=== PATIENT | male | born 1945 | race Caucasian/White ===

== ENCOUNTER 2020-07-03 06:00 | Day surgery (SDC) | payer MEDICARE ==
[~2020-07-03] VITALS: Ht 172.7 cm; Wt 82.4 kg
[2020-07-03] VITALS (11 sets, daily range): BP systolic 82–108; BP diastolic 57–98
[2020-07-03] MEDS ORDERED: UMEC62.5 (06:51)
[2020-07-03] MEDS ORDERED: POTA99TA21 PO (06:51)
[2020-07-03] MEDS ORDERED: ALBU18HF2 INH (06:51)
[2020-07-03] MEDS ORDERED: SPIR100T5 PO (06:51)
[2020-07-03] MEDS ORDERED: MULT-1085 PO (06:51)
[2020-07-03] MEDS ORDERED: MAGN200T8 PO (06:51)
[2020-07-03] MEDS ORDERED: FURO40TA4 PO (06:51)
[2020-07-03] MEDS ORDERED: CALC-393 PO (06:51)
[2020-07-03] MEDS ORDERED: CHOL1TAB PO (06:51)
[2020-07-03] MEDS ORDERED: ASCO100089 PO (06:51)
[2020-07-03] MEDS ORDERED: SALM50DI2 IH (06:51)
[2020-07-03] MEDS: albumin 25% 100mL bottle x 1 IV PRN ×2 (09:00→09:45)
[2020-07-03 09:14] LABS: ALBUMIN,BODY FLUID 0.7 G/DL
[2020-07-03 09:35] LABS: EOSINOPHILS,BODY FLUID 2 %; LYMPHOCYTES,BODY FLUID 75 %; MONOCYTES,BODY FLUID 17 %; NEUTROPHILS,BODY FLUID 6 %
[2020-07-03 09:37] LABS: BF MESOTHELIAL CELLS FEW; BF RBC COUNT 4775 /CU MM; BF WBC COUNT 235 /CU MM (0-1000); BFAPPEAR CLOUDY; BFCOLOR OTHER; BFVOLUME 49 ML
== END 2020-07-03 10:08 | disposition home or self-care (01) ==
LOC: SSTAY O 06:00
PROVIDERS: ATTEND Radiology Diagnostic Radiology
DX: R18.8 Other ascites (principal); K74.69 Other cirrhosis of liver; J44.9 Chronic obstructive pulmonary disease, unspecified; G47.30 Sleep apnea, unspecified; Z88.1 Allergy status to other antibiotic agents; Z79.899 Other long term (current) drug therapy
CPT/HCPCS: 49083; 82042; 87070; 89051; P9047

== ENCOUNTER 2020-09-04 08:01 | Day surgery (SDC) | payer MEDICARE ==
[~2020-09-04] VITALS: Ht 170.2 cm; Wt 79.4 kg
[2020-09-04] VITALS (8 sets, daily range): BP systolic 94–113; BP diastolic 64–79
[~2020-09-04 08:01] MED LIST: ALBU18HF2 INH; ASCO100089 PO; CALC-393 PO; CHOL1TAB PO; FURO40TA4 PO; MAGN200T8 PO; MULT-1085 PO; POTA99TA21 PO; SALM50DI2 IH; SPIR100T5 PO; UMEC62.5
[2020-09-04] MEDS ORDERED: albumin 25% 100mL bottle x 1 IV PRN (08:30)
== END 2020-09-04 10:00 | disposition home or self-care (01) ==
LOC: SSTAY O 08:01
PROVIDERS: ATTEND Radiology Vascular & Interventional Radiology
DX: R18.8 Other ascites (principal); J44.9 Chronic obstructive pulmonary disease, unspecified; G47.30 Sleep apnea, unspecified; K74.60 Unspecified cirrhosis of liver; Z88.1 Allergy status to other antibiotic agents; Z79.899 Other long term (current) drug therapy
CPT/HCPCS: 49083; P9047

== ENCOUNTER 2020-10-06 07:36 | Day surgery (SDC) | payer MEDICARE ==
[2020-10-06] VITALS (7 sets, daily range): BP systolic 96–116; BP diastolic 62–78
[~2020-10-06] VITALS: Ht 172.7 cm; Wt 86.3 kg
[2020-10-06] MEDS: albumin 25% 100mL bottle x 1 IV PRN ×2 (09:33→10:13)
[2020-10-06 10:40] LABS: GLUCOSE,BODY FLUID 107 MG/DL; LDH,BODY FLUID 41 U/L
[2020-10-06 10:59] LABS: BFAPPEAR CLOUDY; BFCOLOR YELLOW
[2020-10-06 11:00] LABS: BF MESOTHELIAL CELLS FEW; BF RBC COUNT 14625 /CU MM; BF WBC COUNT 300 /CU MM (0-1000); BFVOLUME 60 ML; LYMPHOCYTES,BODY FLUID 82 %; MONOCYTES,BODY FLUID 17 %; NEUTROPHILS,BODY FLUID 1 %
[2020-10-06 11:16] LABS: TOTAL PROTEIN,BODY FLUID < 2.0 G/DL
== END 2020-10-06 11:15 | disposition home or self-care (01) ==
LOC: SSTAY O 07:36
PROVIDERS: ATTEND Preventive Medicine Aerospace Medicine
DX: R18.8 Other ascites (principal); J44.9 Chronic obstructive pulmonary disease, unspecified; G47.30 Sleep apnea, unspecified; K74.69 Other cirrhosis of liver; Z88.1 Allergy status to other antibiotic agents; Z79.899 Other long term (current) drug therapy
CPT/HCPCS: 49083; 82945; 83615; 84157; 87070; 89051; P9047; 88108; 88305

== ENCOUNTER 2020-10-17 06:44 | Day surgery (SDC) | payer MEDICARE ==
[~2020-10-17] VITALS: Ht 167.6 cm; Wt 83.3 kg
[2020-10-17] VITALS (18 sets, daily range): BP systolic 79–100; BP diastolic 46–66
[~2020-10-17 06:44] MED LIST changes: -CHOL1TAB PO; -FURO40TA4 PO; -POTA99TA21 PO; -SPIR100T5 PO
[2020-10-17] MEDS: albumin 25% 100mL bottle x 1 IV PRN ×3 (09:05→09:51)
== END 2020-10-17 12:50 | disposition home or self-care (01) ==
LOC: SSTAY O 06:44
PROVIDERS: ATTEND Radiology Vascular & Interventional Radiology
DX: R18.8 Other ascites (principal); R14.0 Abdominal distension (gaseous); K74.69 Other cirrhosis of liver; J44.9 Chronic obstructive pulmonary disease, unspecified; G47.30 Sleep apnea, unspecified; Z79.899 Other long term (current) drug therapy
CPT/HCPCS: 49083; P9047

== ENCOUNTER 2020-10-24 06:40 | Day surgery (SDC) | payer MEDICARE ==
[2020-10-24] VITALS (10 sets, daily range): BP systolic 97–110; BP diastolic 59–73
[~2020-10-24] VITALS: Ht 167.6 cm; Wt 77.7 kg
[~2020-10-24 06:40] MED LIST changes: -MULT-1085 PO
[2020-10-24] MEDS ORDERED: normal saline 1000ml 1,000 ML IV PRN (07:05)
[2020-10-24] MEDS: albumin 25% 100mL bottle x 1 IV PRN ×2 (08:32→09:40)
== END 2020-10-24 10:40 | disposition home or self-care (01) ==
LOC: SSTAY O 06:40
PROVIDERS: ATTEND Radiology Vascular & Interventional Radiology
DX: R18.8 Other ascites (principal); R14.0 Abdominal distension (gaseous); K74.69 Other cirrhosis of liver; J44.9 Chronic obstructive pulmonary disease, unspecified; G47.30 Sleep apnea, unspecified; Z79.899 Other long term (current) drug therapy
CPT/HCPCS: 49083; P9047

== ENCOUNTER 2020-10-31 08:03 | Day surgery (SDC) | payer MEDICARE ==
[2020-10-31] VITALS (14 sets, daily range): BP systolic 93–108; BP diastolic 61–96
[~2020-10-31] VITALS: Ht 167.6 cm; Wt 73.5 kg
[2020-10-31] MEDS: albumin 25% 100mL bottle x 1 IV PRN ×2 (09:46→10:41)
== END 2020-10-31 12:35 | disposition home or self-care (01) ==
LOC: SSTAY O 08:03
PROVIDERS: ATTEND Radiology Diagnostic Radiology
DX: R18.8 Other ascites (principal); R14.0 Abdominal distension (gaseous); J44.9 Chronic obstructive pulmonary disease, unspecified; G47.30 Sleep apnea, unspecified; K74.69 Other cirrhosis of liver; Z79.899 Other long term (current) drug therapy
CPT/HCPCS: 49083; P9047

== ENCOUNTER 2020-11-07 07:58 | Day surgery (SDC) | payer MEDICARE ==
[~2020-11-07] VITALS: Ht 167.6 cm; Wt 71.8 kg
[2020-11-07] VITALS (7 sets, daily range): BP systolic 91–104; BP diastolic 58–71
[~2020-11-07 07:58] MED LIST changes: -ASCO100089 PO
[2020-11-07] MEDS ORDERED: normal saline 1000ml 1,000 ML IV PRN (08:25)
[2020-11-07] MEDS ORDERED: albumin 25% 100mL bottle x 1 IV PRN (08:25)
== END 2020-11-07 11:15 | disposition home or self-care (01) ==
LOC: SSTAY O 07:58
PROVIDERS: ATTEND Preventive Medicine Aerospace Medicine
DX: R18.8 Other ascites (principal); R14.0 Abdominal distension (gaseous); J44.9 Chronic obstructive pulmonary disease, unspecified; G47.30 Sleep apnea, unspecified; K74.69 Other cirrhosis of liver; Z88.1 Allergy status to other antibiotic agents; Z79.899 Other long term (current) drug therapy
CPT/HCPCS: 49083; P9047; 36415; 80053

== ENCOUNTER 2020-11-07 09:48 | Outpatient (CLI) | payer MEDICARE ==
[2020-11-07 10:57] LABS: ALANINE AMINOTRANSFERASE 29 U/L (12-78); ALBUMIN/GLOBULIN RATIO 1.2 (1.1-1.5); ALKALINE PHOSPHATASE 109 IU/L (46-116); ANION GAP 10 (8-16); ASPARTATE AMINO TRANSFERASE 38 U/L (10-37); BILIRUBIN,TOTAL 1.3 MG/DL (0.1-1.0); BLOOD UREA NITROGEN 34 MG/DL (7-18); BUN/CREATININE RATIO 31.2 (5.4-32.0); CALCIUM 8.2 MG/DL (8.5-10.1); CHLORIDE 100 MMOL/L (99-107); CREATININE 1.09 MG/DL (0.60-1.10); GLUCOSE 79 MG/DL (70-104); POTASSIUM 4.7 MMOL/L (3.5-5.1); SODIUM 129 MMOL/L (135-145); TOTAL CARBON DIOXIDE 19.1 MMOL/L (24-32); TOTAL PROTEIN 5.6 G/DL (6.4-8.2); eGFR 66 ML/MIN
== END 2020-11-07 23:59 | disposition home or self-care (01) ==
LOC: LAB 09:48
PROVIDERS: ATTEND Family Medicine
DX: K72.90 Hepatic failure, unspecified without coma (principal)
CPT/HCPCS: 36415; 80053

== ENCOUNTER 2020-11-14 06:44 | Day surgery (SDC) | payer MEDICARE ==
[2020-11-14] VITALS (9 sets, daily range): BP systolic 78–112; BP diastolic 39–66
[~2020-11-14] VITALS: Ht 167.6 cm; Wt 72.3 kg
[~2020-11-14 06:44] MED LIST changes: -CALC-393 PO; -MAGN200T8 PO
[2020-11-14] MEDS ORDERED: albumin 25% 100mL bottle x 1 IV PRN (07:15)
== END 2020-11-14 10:40 | disposition home or self-care (01) ==
LOC: SSTAY O 06:44
PROVIDERS: ATTEND Radiology Vascular & Interventional Radiology
DX: R18.8 Other ascites (principal); R14.0 Abdominal distension (gaseous); J44.9 Chronic obstructive pulmonary disease, unspecified; G47.30 Sleep apnea, unspecified; K74.69 Other cirrhosis of liver; D64.9 Anemia, unspecified; Z79.899 Other long term (current) drug therapy
CPT/HCPCS: 49083; P9047

== ENCOUNTER 2020-11-21 08:27 | Day surgery (SDC) | payer MEDICARE ==
[2020-11-21] VITALS (9 sets, daily range): BP systolic 79–119; BP diastolic 44–70
[~2020-11-21] VITALS: Ht 167.6 cm; Wt 70.9 kg
[2020-11-21] MEDS ORDERED: albumin 25% 100mL bottle x 1 IV PRN (09:00)
[2020-11-21] MEDS ORDERED: FLU VACC QS2021-22(6MOS UP)/PF 60 MCG/0.5 ML SYRINGE IM ONE (11:00)
[2020-11-21] MEDS ORDERED: normal saline 500ml IV soln 500 ML IV ONE (11:00)
== END 2020-11-21 12:15 | disposition home or self-care (01) ==
LOC: SSTAY O 08:27
PROVIDERS: ATTEND Preventive Medicine Aerospace Medicine
DX: R18.8 Other ascites (principal); R14.0 Abdominal distension (gaseous); J44.9 Chronic obstructive pulmonary disease, unspecified; G47.30 Sleep apnea, unspecified; K74.69 Other cirrhosis of liver; D64.9 Anemia, unspecified; Z79.899 Other long term (current) drug therapy
CPT/HCPCS: 49083; J7040; P9047

== ENCOUNTER 2020-11-28 07:30 | Day surgery (SDC) | payer MEDICARE ==
[~2020-11-28] VITALS: Ht 167.6 cm; Wt 69.4 kg
[2020-11-28] MEDS ORDERED: albumin 25% 100mL bottle x 1 IV PRN (08:00)
[2020-11-28 08:03] VITALS: BP 80/62
--- NOTE | 2020-11-28 08:30 | NUR ---
Patient's BP 87/58. STEVE Jefferson aware. To start albumin
[2020-11-28 08:54] VITALS: BP 87/61
[2020-11-28 09:15] VITALS: BP 85/62
[2020-11-28 09:20] LABS: ALANINE AMINOTRANSFERASE 33 U/L (12-78); ALKALINE PHOSPHATASE 112 IU/L (46-116); ANION GAP 11 (8-16); ASPARTATE AMINO TRANSFERASE 40 U/L (10-37); BILIRUBIN,TOTAL 1.2 MG/DL (0.1-1.0); BLOOD UREA NITROGEN 40 MG/DL (7-18); BUN/CREATININE RATIO 27.4 (5.4-32.0); CALCIUM 8.5 MG/DL (8.5-10.1); CHLORIDE 102 MMOL/L (99-107); CREATININE 1.46 MG/DL (0.60-1.10); GLUCOSE 91 MG/DL (70-104); POTASSIUM 4.6 MMOL/L (3.5-5.1); SODIUM 133 MMOL/L (135-145); TOTAL PROTEIN 6.1 G/DL (6.4-8.2); eGFR 47 ML/MIN
[2020-11-28 09:30] VITALS: BP 89/66
[2020-11-28] MEDS ORDERED: normal saline 500ml IV soln 500 ML IV ONE ×2 (09:30→09:45)
--- NOTE | 2020-11-28 09:30 | NUR ---
Normal saline bolus 500ml at this time d/t BP 89/66
--- NOTE | 2020-11-28 09:45 | NUR ---
250ml Normal saline bolus per STEVE Brito d/t BP 89/64
[2020-11-28 10:00] VITALS: BP 89/63
[2020-11-28 10:15] VITALS: BP 97/68
--- NOTE | 2020-11-28 10:50 | NUR ---
Patient discharged. No procedure performed d/t patient's low BP. Patient taken out to personal car in w/c. All belongings with patient on d/c.
== END 2020-11-28 10:50 | disposition home or self-care (01) ==
LOC: SSTAY O 07:30
PROVIDERS: ATTEND Radiology Vascular & Interventional Radiology
DX: R18.8 Other ascites (principal); Z53.8 Procedure and treatment not carried out for other reasons; I95.9 Hypotension, unspecified; K74.69 Other cirrhosis of liver; G47.30 Sleep apnea, unspecified; J44.9 Chronic obstructive pulmonary disease, unspecified; D64.9 Anemia, unspecified; Z87.19 Personal history of other diseases of the digestive system; Z79.899 Other long term (current) drug therapy
CPT/HCPCS: 36415; 76705; 80053; J7040; P9047

== ENCOUNTER 2020-12-05 07:11 | Day surgery (SDC) | payer MEDICARE ==
[2020-12-05] VITALS (13 sets, daily range): BP systolic 79–95; BP diastolic 57–66
[~2020-12-05] VITALS: Ht 167.6 cm; Wt 72.6 kg
[2020-12-05 08:13] LABS: BASOPHILS % (AUTO) 0.5 % (0-1); EOSINOPHILS # (AUTO) 0.1 X10'3 (0-0.9); EOSINOPHILS % (AUTO) 1.1 % (0-6); HEMATOCRIT 32.8 % (42.0-52.0); HEMOGLOBIN 11.4 g/dl (14.0-17.9); LYMPHOCYTES # (AUTO) 1.5 X10'3 (1.1-4.8); LYMPHOCYTES % (AUTO) 20.8 % (21-51); MEAN CORPUSCULAR HGB CONC 34.6 g/dL (33.0-36.5); MEAN CORPUSCULAR VOLUME 86.8 FL (78-98); MONOCYTES # (AUTO) 0.8 X10'3 (0-0.9); MONOCYTES % (AUTO) 10.8 % (2-12); NEUTROPHILS # (AUTO) 4.8 X10'3 (1.8-7.7); NEUTROPHILS % (AUTO) 66.8 % (42-75); PLATELET COUNT 127 X10'3 (140-440); RED BLOOD COUNT 3.78 X10'6 (4.70-6.10); RED CELL DISTRIBUTION WIDTH 15.9 % (11.5-14.5); WHITE BLOOD COUNT 7.2 X10'3 (4.5-11.0)
[2020-12-05 08:25] LABS: ALANINE AMINOTRANSFERASE 32 U/L (12-78); ALBUMIN 3.3 G/DL (3.4-5.0); ALBUMIN/GLOBULIN RATIO 0.9 (1.1-1.5); ALKALINE PHOSPHATASE 158 IU/L (46-116); ANION GAP 11 (8-16); ASPARTATE AMINO TRANSFERASE 41 U/L (10-37); BILIRUBIN,TOTAL 1.1 MG/DL (0.1-1.0); BLOOD UREA NITROGEN 42 MG/DL (7-18); BUN/CREATININE RATIO 33.3 (5.4-32.0); CALCIUM 8.6 MG/DL (8.5-10.1); CHLORIDE 104 MMOL/L (99-107); CREATININE 1.26 MG/DL (0.60-1.10); GLUCOSE 86 MG/DL (70-104); POTASSIUM 4.5 MMOL/L (3.5-5.1); SODIUM 133 MMOL/L (135-145); TOTAL CARBON DIOXIDE 18.2 MMOL/L (24-32); TOTAL PROTEIN 6.8 G/DL (6.4-8.2); eGFR 56 ML/MIN
[2020-12-05] MEDS: albumin 25% 100mL bottle x 1 IV PRN ×2 (09:07→10:20)
== END 2020-12-05 11:40 | disposition home or self-care (01) ==
LOC: SSTAY O 07:11
PROVIDERS: ATTEND Preventive Medicine Aerospace Medicine
DX: R18.8 Other ascites (principal); R14.0 Abdominal distension (gaseous); K74.69 Other cirrhosis of liver; J44.9 Chronic obstructive pulmonary disease, unspecified; G47.30 Sleep apnea, unspecified; D64.9 Anemia, unspecified; Z87.19 Personal history of other diseases of the digestive system; Z79.899 Other long term (current) drug therapy
CPT/HCPCS: 36415; 49083; 80053; 85025; 85610; P9047

== ENCOUNTER 2020-12-15 07:54 | Day surgery (SDC) | payer MEDICARE ==
[~2020-12-15] VITALS: Ht 170.2 cm; Wt 69.9 kg
[~2020-12-15 07:54] MED LIST changes: +LIDOcaine 1% 30ml preserv. free vial SQ STA
[2020-12-15 08:18] VITALS: BP 94/39
[2020-12-15] MEDS: albumin 25% 100mL bottle x 1 IV PRN ×2 (08:54→10:15)
== END 2020-12-15 12:05 | disposition home or self-care (01) ==
LOC: SSTAY O 07:54
PROVIDERS: ATTEND Radiology Diagnostic Radiology
DX: R18.8 Other ascites (principal); R14.0 Abdominal distension (gaseous); K74.69 Other cirrhosis of liver; G47.30 Sleep apnea, unspecified; D64.9 Anemia, unspecified; J44.9 Chronic obstructive pulmonary disease, unspecified; Z87.19 Personal history of other diseases of the digestive system; Z88.1 Allergy status to other antibiotic agents; Z79.899 Other long term (current) drug therapy
CPT/HCPCS: 36415; 49083; 82140; P9047

== ENCOUNTER 2020-12-22 08:23 | Day surgery (SDC) | payer MEDICARE ==
[~2020-12-22] VITALS: Ht 167.6 cm; Wt 65.3 kg
[~2020-12-22 08:23] MED LIST changes: -LIDOcaine 1% 30ml preserv. free vial SQ STA
[2020-12-22] MEDS ORDERED: albumin 25% 100mL bottle x 1 IV PRN (08:50)
[2020-12-22] MEDS ORDERED: normal saline 1000ml 1,000 ML IV PRN (08:50)
[2020-12-22 09:23] VITALS: BP 83/53
[2020-12-22 09:38] LABS: ALANINE AMINOTRANSFERASE 21 U/L (12-78); ALBUMIN 3.1 G/DL (3.4-5.0); ALBUMIN/GLOBULIN RATIO 1.1 (1.1-1.5); ALKALINE PHOSPHATASE 102 IU/L (46-116); ANION GAP 11 (8-16); ASPARTATE AMINO TRANSFERASE 34 U/L (10-37); BLOOD UREA NITROGEN 40 MG/DL (7-18); BUN/CREATININE RATIO 31.3 (5.4-32.0); CALCIUM 8.2 MG/DL (8.5-10.1); CHLORIDE 105 MMOL/L (99-107); CREATININE 1.28 MG/DL (0.60-1.10); GLUCOSE 98 MG/DL (70-104); SODIUM 135 MMOL/L (135-145); TOTAL CARBON DIOXIDE 19.2 MMOL/L (24-32); TOTAL PROTEIN 5.9 G/DL (6.4-8.2); eGFR 55 ML/MIN
[2020-12-22 10:43] LABS: BASOPHILS % (AUTO) 0.7 % (0-1); EOSINOPHILS # (AUTO) 0.1 X10'3 (0-0.9); EOSINOPHILS % (AUTO) 1.2 % (0-6); HEMATOCRIT 29.7 % (42.0-52.0); HEMOGLOBIN 10.1 g/dl (14.0-17.9); LYMPHOCYTES % (AUTO) 18.4 % (21-51); MEAN CORPUSCULAR HEMOGLOBIN 29.5 PG (27.0-31.0); MEAN CORPUSCULAR HGB CONC 34.2 g/dL (33.0-36.5); MEAN CORPUSCULAR VOLUME 86.2 FL (78-98); MEAN PLATELET VOLUME 7.4 FL (7.4-10.4); MONOCYTES # (AUTO) 0.6 X10'3 (0-0.9); MONOCYTES % (AUTO) 12.2 % (2-12); NEUTROPHILS # (AUTO) 3.6 X10'3 (1.8-7.7); NEUTROPHILS % (AUTO) 67.5 % (42-75); PLATELET COUNT 97 X10'3 (140-440); RED BLOOD COUNT 3.44 X10'6 (4.70-6.10); RED CELL DISTRIBUTION WIDTH 16.1 % (11.5-14.5); WHITE BLOOD COUNT 5.3 X10'3 (4.5-11.0)
[2020-12-22 11:11] LABS: ANISOCYTOSIS 1+; LARGE PLATELETS FEW; PLATELET ESTIMATE DECREASED
== END 2020-12-22 10:13 | disposition home or self-care (01) ==
LOC: SSTAY O 08:23
PROVIDERS: ATTEND Radiology Diagnostic Radiology
DX: R18.8 Other ascites (principal); J44.9 Chronic obstructive pulmonary disease, unspecified; G47.30 Sleep apnea, unspecified; K74.69 Other cirrhosis of liver; D64.9 Anemia, unspecified; Z87.19 Personal history of other diseases of the digestive system; Z79.899 Other long term (current) drug therapy
CPT/HCPCS: 36415; 76705; 80053; 85008; 85025; 85610

== ENCOUNTER 2020-12-29 08:09 | Day surgery (SDC) | payer MEDICARE ==
[~2020-12-29] VITALS: Ht 167.6 cm; Wt 66.6 kg
[~2020-12-29 08:09] MED LIST changes: +LIDOcaine 1% 30ml preserv. free vial SQ STA
[2020-12-29] MEDS ORDERED: albumin 25% 100mL bottle x 1 IV PRN (08:30)
[2020-12-29] MEDS ORDERED: LIDOcaine 1% (10mg/ml) 2ml vial SQ ONE (08:35)
[2020-12-29] MEDS ORDERED: [UNRECOGNIZED DRUG - OTHER] TD (08:40)
[2020-12-29 08:49] VITALS: BP 106/59
[2020-12-29] MEDS ORDERED: LIDOcaine 1% 30ml preserv. free vial SQ STA (08:57)
[2020-12-29 09:06] VITALS: BP 96/55
[2020-12-29 09:21] VITALS: BP 87/63
[2020-12-29 09:36] VITALS: BP 90/69
[2020-12-29 09:51] VITALS: BP 91/69
[2020-12-29 10:05] VITALS: BP 90/66
== END 2020-12-29 11:00 | disposition home or self-care (01) ==
LOC: SSTAY O 08:09
PROVIDERS: ATTEND Radiology Vascular & Interventional Radiology
DX: R18.8 Other ascites (principal); R14.0 Abdominal distension (gaseous); K74.69 Other cirrhosis of liver; J44.9 Chronic obstructive pulmonary disease, unspecified; G47.30 Sleep apnea, unspecified; D64.9 Anemia, unspecified; Z87.19 Personal history of other diseases of the digestive system; Z79.899 Other long term (current) drug therapy
CPT/HCPCS: 49083; J2001; P9047

== ENCOUNTER 2021-01-13 08:39 | Day surgery (SDC) | payer MEDICARE ==
[~2021-01-13] VITALS: Ht 167.6 cm; Wt 70.1 kg
[2021-01-13] VITALS (8 sets, daily range): BP systolic 83–97; BP diastolic 57–69
[~2021-01-13 08:39] MED LIST changes: -LIDOcaine 1% 30ml preserv. free vial SQ STA; +[UNRECOGNIZED DRUG - OTHER] TD
[2021-01-13] MEDS ORDERED: albumin 25% 100mL bottle x 1 IV PRN (09:05)
[2021-01-13] MEDS ORDERED: OMEP40CA21 PO (09:27)
[2021-01-13] MEDS ORDERED: albumin (human) 25% 100 ML IV solution IV ONE (10:00)
[2021-01-13 10:03] LABS: BASOPHILS % (AUTO) 1.1 % (0-1); EOSINOPHILS % (AUTO) 0.7 % (0-6); HEMATOCRIT 26.7 % (42.0-52.0); HEMOGLOBIN 8.9 g/dl (14.0-17.9); LYMPHOCYTES # (AUTO) 0.8 X10'3 (1.1-4.8); LYMPHOCYTES % (AUTO) 19.2 % (21-51); MEAN CORPUSCULAR HGB CONC 33.5 g/dL (33.0-36.5); MEAN CORPUSCULAR VOLUME 86.4 FL (78-98); MEAN PLATELET VOLUME 6.9 FL (7.4-10.4); MONOCYTES # (AUTO) 0.5 X10'3 (0-0.9); MONOCYTES % (AUTO) 11.7 % (2-12); NEUTROPHILS # (AUTO) 2.9 X10'3 (1.8-7.7); NEUTROPHILS % (AUTO) 67.3 % (42-75); PLATELET COUNT 91 X10'3 (140-440); RED BLOOD COUNT 3.09 X10'6 (4.70-6.10); RED CELL DISTRIBUTION WIDTH 15.9 % (11.5-14.5); WHITE BLOOD COUNT 4.3 X10'3 (4.5-11.0)
[2021-01-13 10:20] LABS: ALANINE AMINOTRANSFERASE 16 U/L (12-78); ALBUMIN 2.5 G/DL (3.4-5.0); ALBUMIN/GLOBULIN RATIO 0.9 (1.1-1.5); ALKALINE PHOSPHATASE 117 IU/L (46-116); ANION GAP 8 (8-16); ASPARTATE AMINO TRANSFERASE 29 U/L (10-37); BILIRUBIN,TOTAL 0.8 MG/DL (0.1-1.0); BLOOD UREA NITROGEN 39 MG/DL (7-18); BUN/CREATININE RATIO 23.5 (5.4-32.0); CALCIUM 7.8 MG/DL (8.5-10.1); CHLORIDE 100 MMOL/L (99-107); CREATININE 1.66 MG/DL (0.60-1.10); GLUCOSE 77 MG/DL (70-104); SODIUM 130 MMOL/L (135-145); TOTAL PROTEIN 5.4 G/DL (6.4-8.2); eGFR 41 ML/MIN
[2021-01-13] MEDS ORDERED: normal saline 1000ml 1,000 ML IV ONE (12:00)
== END 2021-01-13 12:20 | disposition home or self-care (01) ==
LOC: SSTAY O 08:39
PROVIDERS: ATTEND Radiology Vascular & Interventional Radiology
DX: R18.8 Other ascites (principal); Z53.8 Procedure and treatment not carried out for other reasons; R14.0 Abdominal distension (gaseous); K74.69 Other cirrhosis of liver; I95.9 Hypotension, unspecified; J44.9 Chronic obstructive pulmonary disease, unspecified; G47.30 Sleep apnea, unspecified; D64.9 Anemia, unspecified; Z79.899 Other long term (current) drug therapy
CPT/HCPCS: 36415; 76705; 80053; 85025; 85610; P9047